=== PATIENT | male | born 1990 | race African-American/Black ===

== ENCOUNTER 2019-12-17 20:44 | Emergency (ER) | payer MEDICAID ==
[~2019-12-17] VITALS: Ht 175.3 cm; Wt 93.0 kg
[2019-12-17 20:50] VITALS: BP 143/92
--- NOTE | 2019-12-17 20:50 | NUR ---
ED Nurse Note: Patient walked into ED for concern of STD. He states he has one bump/lesion on shaft of penis. He states he is sexually active, but uses protection. The bump is not painful and has no discharge. He also denies discharge coming from penis, dysuria or penile pain. AAOX4, breathing is normal and unlabored.
[2019-12-17 21:05] VITALS: BP 138/89
--- NOTE | 2019-12-17 21:05 | NUR ---
ER DISCHARGE NOTE: Patient is cleared to be discharged per ERMD, pt is aox4, on room air, with stable vital signs. pt was given dc instructions, pt was able to verbalize understanding, pt id band removed. pt is able to ambulate with steady gait. pt took all belongings.
--- NOTE | 2019-12-17 21:14 | Emergency Room Report ---
History of Present Illness General Chief Complaint: Male Urogenital Problems Source: Patient Present Illness [facility] Disclaimer: Please note that this report is being documented using DRAGON technology. This can lead to erroneous entry secondary to incorrect interpretation by the dictating instrument. HPI: 29-year-old male presents for evaluation of lesion on his penis. He first noticed it 2 days ago. Noticed a nodule at the distal shaft of his penis. Nontender. No bleeding, no redness, no swelling, denies dysuria, hematuria, penile discharge, testicular pain, nausea, vomiting, abdominal pain, diarrhea or other changes in his health. Denies recent fever, chills, cough, shortness of breath. Reports recent unprotected sexual intercourse. No prior history of STI. PMH: Denied PSH: Denied Allergies: Denied Social Hx: Denied Allergies: Coded Allergies: No Known Allergies (Unverified , 12/17/19) COVID-19 Screening Contact w/high risk pt: No Experienced COVID-19 symptoms?: No COVID-19 Testing performed SPECIAL CLASS WELDER: No Nursing Documentation-PMH Past Medical History: No Stated History Review of Systems All Other Systems: negative except mentioned in HPI Physical Exam Vital Signs Date Time Temp Pulse Resp B/P (MAP) Pulse Ox O2 Delivery O2 Flow Rate FiO2 12/17/19 20:46 98.4 85 16 143/92 (109) 98 Room Air General: Awake and alert, no acute distress HEENT: NC/AT. EOMI. Resp: Normal work of breathing Abdomen: Soft, nontender, nondistended : Uncircumcised male. Easily retractable foreskin. There is a small firm nontender nodule on the 12 o'clock position of the penis at the distal shaft just proximal to the glans. Nontender. No fluctuance. No erythematous base. Nonvesicular in appearance. No ulceration. Nikolsky negative. Testicles anatomic position. Nontender. No edema. Skin: Intact. No abrasions, laceration or rash over the exposed skin MSK: Normal tone and bulk. Moving all extremities. No obvious deformity. Neuro: Awake and alert. Mentating appropriately Medical Decision Making Diagnostic Impression: Primary Impression: Nodule of shaft of penis ER Course Is a 29-year-old male presenting for evaluation of nontender nodule on his penis. Differential includes was not limited to pustule, Marito spot, pearly penile papules, syphilis, chancre, HSV, HPV among others. No evidence of urethritis at this time. Does not appear to be a primary syphilis lesion or HSV lesion at this time. Patient will require testing for all STIs given his recent unprotected sexual intercourse. Will refer to outpatient clinic testing. May require dermatological evaluation. Stable for outpatient follow-up. Instructed to return with new or worsening symptoms. He understands and agrees with the treatment plan. Last Vital Signs Date Time Temp Pulse Resp B/P (MAP) Pulse Ox O2 Delivery O2 Flow Rate FiO2 12/17/19 20:46 98.4 85 16 143/92 (109) 98 Room Air Disposition: HOME, SELF-CARE Condition: Stable Referrals: [facility] *Patients are seen by appointment only* [facility] Patient Instructions: Sexually Transmitted Disease Additional Instructions: Please follow-up with one of the clinics listed here in your discharge paperwork for STD testing including HIV, hepatitis, herpes virus, syphilis, chlamydia, gonorrhea among others. Refrain from sexual contact until you obtain these results. Notify all sexual partners of any positive results. Return to the emergency department new or worsening symptoms. Please follow-up with your primary care doctor in the next 1 to 3 days to discuss this emergency department visit and for reevaluation. If you have any new or worsening symptoms please return to the emergency department for reev aluation. Please note that this report is being documented using Vouch technology. This can lead to erroneous entry secondary to incorrect interpretation by the dictating instrument. Wilson Peter MD Dec 17, 2019 21:14
== END 2019-12-17 21:05 | disposition home or self-care (01) ==
LOC: EMR 20:55
DX: N48.9 Disorder of penis, unspecified (principal)
CPT/HCPCS: 99282

== ENCOUNTER 2019-12-23 12:10 | Emergency (ER) | payer MEDICAID ==
[~2019-12-23] VITALS: Ht 175.3 cm; Wt 95.3 kg
--- NOTE | 2019-12-23 12:21 | NUR ---
ED Nurse Note: Pt walked into ED for bump on penis for 2 weeks. Pt recently came to ED for same problem, but states it has become more irritating. Denies discharge or dysuria. Pt is alert and orientedx4, ambulatroy.
[2019-12-23 12:23] VITALS: BP 142/96
[2019-12-23] MEDS ORDERED: VALACYCLOVIR500 MG ORAL (12:40)
[2019-12-23] MEDS ORDERED: FLUCONAZOLE100 MG ORAL (12:40)
[2019-12-23 12:45] VITALS: BP 142/96
--- NOTE | 2019-12-23 12:45 | NUR ---
ER DISCHARGE NOTE: Patient is cleared to be discharged per ERMD, pt is aox4, on room air, with stable vital signs. pt was given dc and prescription instructions, pt was able to verbalize understanding, pt id band removed without complications. pt is able to ambulate with steady gait. pt took all belongings.
--- NOTE | 2019-12-23 13:41 | Emergency Room Report ---
History of Present Illness General Chief Complaint: Male Urogenital Problems Source: Patient Present Illness HPI Patient was diagnosed with a nodule on his penile shaft about a few days ago when he was seen in our emergency department. He returns today because does not seem to be improving and he is concerned that maybe is getting little worse. He denies any other injury. Denies any penile discharge. States that he has a stable sexual partner. No other complaints are noted. Symptoms are mild/moderate. Denies any testicular pain. Denies any lymphadenopathy. No other modifying factors. No other associated signs and symptoms. No other complaints were noted. Patient also complains of a rash in his feet consistent with athlete's foot. Patient requires treatment for this. States that he has been applying lotion on it without improvement. Allergies: Coded Allergies: No Known Allergies (Unverified , 12/17/19) COVID-19 Screening Contact w/high risk pt: No Recent Travel to affected area: No Experienced COVID-19 symptoms?: No COVID-19 Testing performed TRAFFIC COORDINATOR: No Patient History Past Medical History: none Past Surgical History: none Pertinent Family History: none Social History: Denies: smoking, alcohol use, drug use Reviewed Nursing Documentation: PMH: Agreed; PSxH: Agreed Nursing Documentation-PMH Past Medical History: No Stated History Review of Systems All Other Systems: negative except mentioned in HPI Physical Exam Vital Signs Date Time Temp Pulse Resp B/P (MAP) Pulse Ox O2 Delivery O2 Flow Rate FiO2 12/23/19 12:14 98.2 88 18 147/95 (112) 95 Room Air Sp02 EP Interpretation: reviewed, normal General Appearance: normal inspection, well appearing, no apparent distress, alert Head: atraumatic Eyes: bilateral eye normal inspection ENT: normal ENT inspection, hearing grossly normal, normal voice Neck: normal inspection, full range of motion, supple, no bony tend Respiratory: normal inspection, lungs clear, normal breath sounds, no respiratory distress, no retraction, no wheezing Cardiovascular #1: regular rate, rhythm, no edema Gastrointestinal: normal inspection, normal bowel sounds, non tender, soft, no guarding, no hernia Genitourinary: no CVA tenderness, other - Patient has a sore on penile head. Musculoskeletal: normal inspection, back normal, normal range of motion Neurologic: alert, responsive, speech normal, normal inspection Psychiatric: normal inspection, judgement/insight normal, mood/affect normal Skin: other - tinea pedis Medical Decision Making Diagnostic Impression: Primary Impression: Nodule of shaft of penis Additional Impression: Tinea pedis ER Course Patient presents to the emergency department today complaining of a sore on his genital. Differential considerations include STD, herpes, abrasion just name few. Patient exam is consistent with possible HSV infection. Recommend taking valacyclovir and having the partner examined and possibly treated. Patient also complains of athlete's foot. Will treat with Diflucan as topicals are not working. Patient is advised to follow up with primary doctor in 2-3 days and return the emergency room for any worsening symptoms and as needed. Last Vital Signs Date Time Temp Pulse Resp B/P (MAP) Pulse Ox O2 Delivery O2 Flow Rate FiO2 12/23/19 12:45 98.2 76 16 142/96 97 Room Air Status: improved Disposition: HOME, SELF-CARE Condition: Stable Scripts Valacyclovir Hcl* (VALTREX*) 500 Mg Tablet 500 MG ORAL TWICE A DAY for 5 Days, TAB Prov: Guilherme Amaya MD 12/23/19 Fluconazole (FLUCONAZOLE) 100 Mg Tablet 200 MG ORAL QWEEK, #8 TAB 0 Refills Prov: Guilherme Amaya MD 12/23/19 Referrals: [facility]ERR[facility] (PCP) Patient Instructions: Athlete's Foot, [id number], Genital Herpes Guilherme Amaya MD Dec 23, 2019 13:41
== END 2019-12-23 12:45 | disposition home or self-care (01) ==
LOC: EMR 12:40
DX: N48.89 Other specified disorders of penis (principal); B35.3 Tinea pedis
CPT/HCPCS: 99282

== ENCOUNTER 2020-01-28 00:28 | Emergency (ER) | payer MEDICAID ==
[~2020-01-28] VITALS: Ht 175.3 cm; Wt 93.0 kg
[~2020-01-28 00:28] MED LIST: FLUCONAZOLE100 MG ORAL; VALACYCLOVIR500 MG ORAL
[2020-01-28 00:45] VITALS: BP 135/95
--- NOTE | 2020-01-28 00:45 | NUR ---
ED Nurse Note: Patient walked into ED from home for c/o epigastric pain that is aching in nature. He states this pain has been on and off over the past two months. Pain has currently resided in the ED. Mild nausea noted, no vomiting. He is breathing normal and unlabored. Denies CP, urinary symptoms, cough, SOB. He is aaox4. No acute distress at this time.
[2020-01-28] MEDS ORDERED: FAMOTIDINE20 MG ORAL (00:56)
[2020-01-28] MEDS ORDERED: ONDANSETRON ODT4 MG BC (00:56)
--- NOTE | 2020-01-28 00:56 | Emergency Room Report ---
History of Present Illness General Chief Complaint: Abdominal Pain Source: Patient Present Illness HPI 29-year-old -[place] male with no past medical history presents to the emergency department with chief complaint of epigastric abdominal pain after eating a salami sandwich earlier today. Patient states that he experiences similar symptoms once a week x 2 months, usually after eating, but has not sought medical treatment. He has tried baking soda today with mild relief. He currently states that all of his pain has resolved prior to arrival to the ED and is currently denying pain but "wanted to get checked out" since "its been going on a while". States he cut out soda from his diet which has been helping his symptoms. He denies shortness of breath, hemoptysis, hematemesis, fever, cough, chills, vomiting, diarrhea, melena, hematochezia, hematuria, dysuria, flank pain, weakness or any other symptoms. And drink yesterday but does not remember how much The patient's symptoms were gradual onset, severity was moderate, duration since 2 months. Quality: Burning, nonradiating Past medical history: Denies Past surgical history: States it seems to worsen when he drinks alcohol. He drinks alcohol on the weekends Smoking: Denies Alcohol use: On the weekends Drug use: Denies Review of systems: CONST: No fevers or chills, No night sweats PULMONARY: No productive cough, No shortness of breath CARDIAC: Positive chest pain (resolved), No palpitations GI: No vomiting, No diarrhea , No melena_or_BRBPR : No dysuria, No hematuria, No discharge NEURO: No new_focal_weakness_or_numbness, No confusion, No vision changes 14 point Review of Systems is otherwise negative except per HPI Physical Exam: GENERAL: Awake_alert_ nontoxic, no acute distress Spo2 98% on RA -normal EYES: Extraocular muscles are intact. Conjunctivae clear. Lids without swelling ENT: External nose and ear normal_in_appearance. Oropharynx clear. Head_atraumatic, Moist_oral_mucosa NECK: No JVD. No meningismus. No thyromegaly. Supple. Trachea midline RESP: Normal respiratory effort. Symmetric rise. No stridor. Clear_to_auscultation_No_rales_No_wheezes CARDIAC: Regular rate and regular rhytm. No_significant pedal edema. ABDOMEN: Soft. Nondistended. Nontender_No_rebound_or_guarding. Negative Melendez sign. Negative Rovsing's. Negative obturator. No CVA tenderness to palpation. MSK: Normal muscle tone, without rigidity. Extremities without asymmetric deformity or swelling. SKIN: Warm and dry. No visible cyanosis or pallor. No petechiae. NEUROLOGIC: Alert, oriented x3. Motor_and_sensation_grossly_intact. No truncal ataxia. Gait_normal Psych: Normal mood and affect, normal judgment and insight - COORDINATION OF CARE Case was discussed with: Patient Any labs and imaging that were ordered were interpreted as part of the medical decision making: Medical Decision Making/Plan: Differential includes peptic ulcer disease, reflux, gastritis, pancreatitis, , musculoskeletal chest pain, DOUBT acute coronary syndrome, pulmonary embolism, aortic dissection, pericardial tamponade among others. Patient is currently well appearing with stable vitals. Symptoms seem to be postprandial. High suspicion for dyspepsia versus gastritis versus GERD Troponin is negative with over 6 hrs of symptoms. EKG is without any obvious signs of ischemia. He has isolated ST changes in lead V2 but no reciprocal changes. No STEMI. Repeat EKG shows no interval change of V2 ST segment morphology. He has no active chest pain. Acute coronary syndrome is unlikely and the patient is low risk, pain is atypical, nonexertional. Symptoms have been ongoing for 2 months.No cardiac history. HEART score 1. Patient is afebrile, without any significant tenderness in the RUQ, and a negative [place] sign. The patients presentation does not appear to be consistent with acute cholecystitis and thus definitive imaging to rule it out was not pursued. Chest xray shows no evidence of pneumothorax, pneumonia, or significant pleural effusion. The patients symptoms significantly improved, exam upon discharge revealed a benign abdomen without any surgical or peritoneal signs , and tolerating oral fluids. The patient appears stable for discharge with abdominal_recheck_in_24_hours, and understand to return to the ED immediately if symptoms change or worsen. The pain is not classic for pericarditis or myocarditis, and the patient has no significant risk factors for a pericardial effusion and has stable vitals signs, unlikely to have tamponade. Pain is not likely to be pulmonary embolism (PERC negative), and no significant PE risk factors. The patient has no significant risk factors for aortic dissection, no history of connective tissue disorder, and the patients pain is not severe, radiating to the back, or tearing in nature. They have normal bilateral radial and pedal pulses. Pertinent results reviewed with the patient. I educated the patient on the current treatment plan including the risks, benefits, and alternatives. I also discussed the extent and limitations of the current evaluation. The patient expressed understanding and agreement with plan. I recommended PMD follow-up within 1-2 days. Also advised that the patient return to the Emergency Department as soon as possible if they experience any new, persistent, or worsening symptoms. Allergies: Coded Allergies: No Known Allergies (Unverified , 12/17/19) COVID-19 Screening Contact w/high risk pt: No Recent Travel to affected area: No Experienced COVID-19 symptoms?: No COVID-19 Testing performed CREDIT CONTROL OFFICER: No Nursing Documentation-PM Past Medical History: No Stated History Physical Exam Vital Signs Date Time Temp Pulse Resp B/P (MAP) Pulse Ox O2 Delivery O2 Flow Rate FiO2 01/28/20 00:36 98.2 80 18 135/95 (108) 95 Room Air Sp02 EP Interpretation: reviewed, normal Medical Decision Making Diagnostic Impression: Primary Impression: Atypical chest pain Additional Impressions: Dyspepsia Abdominal pain EKG Diagnostic Results Troponin ordered: Yes When was troponin ordered?: Jan 28, 2020 WADE Villagran 12-lead EKG (interpreted by me) Time: 43 Indication: Rhythm analysis Tracing visualized and Interpreted by me. Rhythm: Normal sinus rhythm Rate: 75 bpm QTc: 422 Morphology: No_significant_ST_elevations_or_depressions, No STEMI Impression: Normal_sinus_rhythm_without_significant_abnormality Isolated T wave inversion in lead III. Nonspecific ST changes in lead V2. No STEMI 12-lead EKG (interpreted by me) Time: 013 Indication: Rhythm analysis Tracing visualized and Interpreted by me. Rhythm: Normal sinus rhythm Rate: 69 bpm QTc: 407 Morphology: Normal_sinus_rhythm_without_significant_abnormality Isolated T wave inversion in lead III. Nonspecific ST changes in lead V2. No STEMI. No interval change from previous Rhythm Strip Diag. Results Rhythm Strip Time: 00:55 EP Interpretation: yes Rate: 80 Rhythm: NSR, no PVC's, no ectopy Chest X-Ray Diagnostic Results Chest X-Ray Diagnostic Results : WADE Villagran Chest X-Ray: Views: [ 1 ] view(s) Indication: Chest pain Findings: Normal heart size. Mediastinum normal. No infiltrate. Impression: NADNo acute disease The X-ray(s) were independently viewed and interpreted contemporaneously Electronically signed by Mandy cortes DO Reevaluation Time: 01:45 Last Vital Signs Date Time Temp Pulse Resp B/P (MAP) Pulse Ox O2 Delivery O2 Flow Rate FiO2 01/28/20 00:36 98.2 80 18 135/95 (108) 95 Room Air Status: improved Disposition: HOME, SELF-CARE Admit Decision Time: 02:00 Condition: Stable Scripts Famotidine* (Pepcid 20mg tablet*) 20 Mg Tablet 20 MG ORAL DAILY for Gerd, #30 TAB 0 Refills Prov: Mandy Koehler D.O. 01/28/20 Ondansetron Odt* (ZOFRAN ODT*) 4 Mg Tab.rapdis 4 MG BC EVERY 8 HOURS, #10 TAB 0 Refills Prov: Mandy Koehler D.O. 01/28/20 Referrals: NON PHYSICIAN (PCP) Patient Instructions: Abdominal Pain, Adult, Food Choices for Gastroesophageal Reflux Disease, Adult, [id number], Gastroesophageal Reflux Disease, Adult, [id number] Additional Instructions: Instructions for patient/contractor broomcorn threshing: Follow up with your physician in 1-2 days. Refrain from eating greasy foods, fast foods, citrus, spicy foods, or alcohol Follow-up with your doctor sooner if your condition requires a more timely clinical reevaluation. Return to the emergency department immediately if you feel that your condition is worsening or if you have any new or concerning symptoms. Review your discharge instructions and take any prescriptions given as instructed. [facility] PROVIDES FREE OR LOW-COST HEALTH SERVICES TO PEOPLE WHO CAN SHOW PROOF THAT THEY LIVE IN [facility]. TO FIND MORE CLINICS PARTNERED WITH [facility] TO PROVIDE SERVICE, PLEASE CALL . Mandy Koehler D.O. Jan 28, 2020 00:56
[2020-01-28 01:09] LABS: BASOPHILS % (AUTO) 1.5 % (0.0-2.0); EOSINOPHILS % (AUTO) 2.6 % (0.0-3.0); HEMATOCRIT 41.2 % (42.0-52.0); HEMOGLOBIN 14.5 G/DL (14.2-18.0); LYMPHOCYTES % (AUTO) 49.1 % (20.0-45.0); MEAN CORPUSCULAR VOLUME 84 FL (80-99); MONOCYTES % (AUTO) 6.8 % (1.0-10.0); PLATELET COUNT 258 K/UL (150-450); RED BLOOD COUNT 4.88 M/UL (4.70-6.10); RED CELL DISTRIBUTION WIDTH 14.4 % (11.6-14.8); WHITE BLOOD COUNT 8.5 K/UL (4.8-10.8)
[2020-01-28 01:15] LABS: APPEARANCE,URINE CLEAR; BILIRUBIN, URINE NEGATIVE (NEGATIVE); COLOR,URINE PALE YELLOW; GLUCOSE, URINE (UA) NEGATIVE (NEGATIVE); KETONES,URINE NEGATIVE (NEGATIVE); LEUKOCYTE ESTERASE ,URINE NEGATIVE (NEGATIVE); NITRITE,URINE NEGATIVE (NEGATIVE); PH,URINE 7 (4.5-8.0); UROBILINOGEN,URINE NORMAL MG/DL (0.0-1.0)
[2020-01-28] MEDS ORDERED: Dicyclomine HCl 10mg/5ml oral soln ORAL ONE (01:15)
[2020-01-28] MEDS ORDERED: Lidocaine 2% Visc 15ml soln ORAL ONE (01:15)
[2020-01-28 01:18] LABS: BLOOD UREA NITROGEN 18 mg/dL (7-18); CALCIUM 8.1 MG/DL (8.5-10.1); CARBON DIOXIDE 29 MMOL/L (21-32); CREATININE 1.2 MG/DL (0.55-1.30); POTASSIUM 3.5 MMOL/L (3.5-5.1); PROTEIN,URINE NEGATIVE (NEGATIVE)
--- NOTE | 2020-01-28 01:19 | Diagnostic Imaging Report ---
EXAM: XR Chest, 1 View CLINICAL HISTORY: CP TECHNIQUE: Frontal view of the chest. COMPARISON: No relevant prior studies available. FINDINGS: Lungs: Unremarkable. No consolidation. Pleural space: Unremarkable. No pneumothorax. Heart: Unremarkable. No cardiomegaly. Mediastinum: Unremarkable. Bones/joints: Unremarkable. IMPRESSION: Normal chest x-ray.
[2020-01-28 01:29] LABS: ALANINE AMINOTRANSFERASE 49 U/L (12-78); ALBUMIN 3.4 G/DL (3.4-5.0); ALBUMIN/GLOBULIN RATIO 0.9 (1.0-2.7); ALKALINE PHOSPHATASE 63 U/L (46-116); ASPARTATE AMINO TRANSFERASE 31 U/L (15-37); BILIRUBIN,TOTAL 0.4 MG/DL (0.2-1.0)
--- NOTE | 2020-01-28 01:50 | NUR ---
ED Nurse Note: Patient has been sleeping. He states pain has resolved. No pain at this time.
[2020-01-28 01:59] LABS: CHLORIDE 102 MMOL/L (98-107); SODIUM 138 MMOL/L (136-145)
[2020-01-28 02:15] VITALS: BP 129/85
--- NOTE | 2020-01-28 02:15 | NUR ---
ER DISCHARGE NOTE: Patient is cleared to be discharged per ERMD, pt is aox4, on room air, with stable vital signs. pt was given dc and prescription instructions, pt was able to verbalize understanding, pt id band and iv site removed without complications. pt is able to ambulate with steady gait. pt took all belongings.
== END 2020-01-28 02:15 | disposition home or self-care (01) ==
LOC: EMR 00:46
DX: R10.13 Epigastric pain (principal); R10.9 Unspecified abdominal pain; R07.89 Other chest pain
CPT/HCPCS: 36415; 71045; 80053; 80307; 81001; 83690; 83880; 84484; 85025; 93005; Z7502; 99284